=== PATIENT | male | born 2005 | race Caucasian/White ===

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

== ENCOUNTER 2025-04-21 21:38 | Emergency (ER) | payer OTHER ==
[~2025-04-21] VITALS: Ht 182.9 cm; Wt 81.7 kg
[2025-04-21] MEDS ORDERED: Naloxone HCl 0.4MG / ML 1ML Vial IV ONE (22:30)
[2025-04-21 22:38] LABS: BASOPHILS ABSOLUTE AUTO 0.05 K/mm3 (0.00-0.23); BASOPHILS PERCENT AUTO 1 % (0-2); EOSINOPHILS ABSOLUTE AUTO 0.08 K/mm3 (0.00-0.68); EOSINOPHILS PERCENT AUTO 1 % (0-6); Hematocrit 42.4 % (37.0-53.0); Hemoglobin 14.6 g/dL (13.5-17.5); IMMATURE GRAN ABSOLUTE AUTO 0.03 K/mm3 (0.00-0.10); IMMATURE GRAN PERCENT AUTO 0 % (0-1); LYMPHOCYTES ABSOLUTE AUTO 2.46 K/mm3 (0.84-5.20); LYMPHOCYTES PERCENT AUTO 22 % (21-46); MONOCYTES ABSOLUTE AUTO 0.91 K/mm3 (0.16-1.47); MONOCYTES PERCENT AUTO 8 % (4-13); Mean Corpuscular HGB 31.1 pg (26.0-34.0); Mean Corpuscular HGB Conc 34.4 g/dL (31.5-36.5); Mean Corpuscular Volume 90 fL (80-100); Mean Platelet Volume 10.5 fL (9.1-12.4); NEUTROPHILS ABSOLUTE AUTO 7.58 K/mm3 (1.96-9.15); NEUTROPHILS PERCENT AUTO 68 % (41-73); Platelet Count 240 K/mm3 (150-400); RDW Coefficient Variation 12.2 % (11.7-14.2); RDW Standard Deviation 39.8 fL (35.1-46.3); White Blood Cell Count 11.11 K/mm3 (4.00-11.30)
[2025-04-21 22:57] LABS: Ethanol (Alcohol), Blood, Med 207 mg/dL; Salicylate <1.7 mg/dL (2.8-20.0)
[2025-04-21 22:57] LABS: Base Excess Venous -1.4 mmol/L; Bicarbonate Venous 23.1 mmol/L (24.0-30.0); PCO2 Venous 43.5 mmHg (38-42); pH Blood Venous 7.35 (7.34-7.37)
[2025-04-21 23:06] LABS: Alanine Aminotransfer (ALT/SGP 25 U/L (12-78); Albumin, Blood 3.8 g/dL (3.4-5.0); Albumin/Globulin Ratio 1.1 (0.8-1.8); Alk Phos 49 U/L (50-136); Anion Gap 10 mmol/L (3-11); Aspartate Aminotrans (AST/SGOT 26 U/L (12-37); Bilirubin, Total 0.7 mg/dL (0.1-1.0); Blood Urea Nitrogen 11 mg/dL (8-24); Bun/Creatinine Ratio 8.9 (12.0-20.0); CO2, Blood 25 mmol/L (21-32); Calcium, Blood 8.5 mg/dL (8.5-10.1); Chloride, Blood 108 mmol/L (98-108); Creatinine, Blood 1.24 mg/dL (0.60-1.20); Globulin, Blood 3.5 g/dL (2.2-4.0); Glomerular Filtration Rate 85 (60-); Glucose, Blood 100 mg/dL (70-99); Potassium, Blood 3.1 mmol/L (3.5-5.5); Sodium, Blood 140 mmol/L (136-145); Total Protein, Blood 7.3 g/dL (6.4-8.2)
[2025-04-21 23:07] LABS: Acetaminophen, Random <2.0 ug/mL (10.0-30.0)
[2025-04-22] MEDS ORDERED: Potassium Chloride 20 MEQ TabCR PO ONE (00:45)
[2025-04-22] MEDS ORDERED: NS 1,000 ML IV SCH (00:45)
[2025-04-22] MEDS ORDERED: CefTRIAXone Sodium 1,000 MG in NS 50 ML IV ONE (01:20)
[2025-04-22] MEDS ORDERED: Diphth,Pertuss(Acell),Tet Vac 0.5 ML VIAL IM ONE ×2 (01:20→06:35)
[2025-04-22 02:02] LABS: U Amphetamine Screen DETECTED; U Barbituate Screen Not Detected; U Benzodiazapine Screen Not Detected; U Buprenorphine Screen Not Detected; U Cannabinoids Screen DETECTED; U Cocaine Screen Not Detected; U Methadone Screen Not Detected; U Methamphetamine Screen DETECTED; U Opiates Screen Not Detected; U Oxycodone Screen Not Detected; U Phencyclidine Screen Not Detected
[2025-04-22 06:25] VITALS: BP 123/68
== END 2025-04-22 07:28 | disposition home or self-care (01) ==
LOC: ER 21:38
PROVIDERS: Emergency Medicine
DX: F15.90 Other stimulant use, unspecified, uncomplicated (principal)
CPT/HCPCS: 71045; 80053; 80320; 82803; 84443; 85025; 90471; 90715; 93005; 93010; 96365; 96375; 99285-25; A9270; G0480; J0696; J2310; J7030